=== PATIENT | male | born 1945 | race Caucasian/White ===

== ENCOUNTER 2022-03-09 16:52 | Inpatient (IN) | payer BC ==
[~2022-03-09] VITALS: Ht 165.1 cm; Wt 77.6 kg
--- NOTE | 2022-03-09 17:00 | NUR ---
DIANA from [facility] c/o neck pain s/p unwitnessed GLF. PLACED ON BED, AAOX4, BREATHING EVEN AND UNLABORED SATURATING AT 97%RA.
--- NOTE | 2022-03-09 17:15 | NUR ---
PATIENT IS AAOX3
--- NOTE | 2022-03-09 17:50 | NUR ---
CUSTOMER ASSISTANT AT BEDSIDE
[2022-03-09 18:06] LABS: BASOPHILS % (AUTO) 0.3 % (0.0-2.0); EOSINOPHILS % (AUTO) 1.7 % (0.0-6.0); HEMATOCRIT 40 % (39-51); HEMOGLOBIN 13.4 g/dL (13.5-17.5); LYMPHOCYTES # (AUTO) 1.2 K/uL (0.8-4.8); LYMPHOCYTES % (AUTO) 15.3 % (20.0-44.0); MEAN CORPUSCULAR HGB CONC 34 g/dl (31.0-36.0); MEAN CORPUSCULAR VOLUME 97 fL (80-96); MONOCYTES % (AUTO) 12.8 % (2.0-12.0); NEUTROPHILS # (AUTO) 5.6 K/uL (1.8-8.9); NEUTROPHILS % (AUTO) 69.9 % (43.0-81.0); PLATELET COUNT (AUTO) 216 K/uL (150-450); RED BLOOD CELL COUNT(AUTO) 4.14 MIL/uL (4.5-6.0)
[2022-03-09 18:22] LABS: CALCIUM, SERUM 8.9 mg/dL (8.5-10.1); CARBON DIOXIDE 28 mmol/L (21-32); CHLORIDE 103 mmol/L (98-107); CREATININE 1.7 mg/dL (0.6-1.3); GLUCOSE 139 mg/dL (74-106); POTASSIUM 3.8 mmol/L (3.5-5.1); SODIUM SERUM 137 mmol/L (136-145); UREA NITROGEN, BLOOD 27 mg/dL (7-18)
[2022-03-09 18:27] LABS: ALANINE AMINOTRANSFERASE 6 U/L (12-78); ALBUMIN 3.4 g/dL (3.4-5.0); ALKALINE PHOSPHATASE 101 U/L (46-116); ASPARTATE AMINOTRANSFERASE 18 U/L (15-37); BILIRUBIN,DIRECT 0.2 mg/dL (0.0-0.2); TOTAL PROTEIN, SERUM 6.6 g/dL (6.4-8.2)
--- NOTE | 2022-03-09 18:50 | NUR ---
PATIENT TAKEN TO CT VIA GILLIAN
--- NOTE | 2022-03-09 20:21 | NUR ---
SWAB FOR COVID19 SENT TO LAB
[2022-03-09] MEDS ORDERED: HYDROCODONE/APAP 10/325MG TABLET PO PRN (21:00)
[2022-03-09] MEDS ORDERED: ACETAMINOPHEN 325 MG TABLET PO PRN (21:00)
[2022-03-09] MEDS ORDERED: MAG HYDROX/AL HYDROX/SIMETH 30 ML UDC PO PRN (21:00)
[2022-03-09] MEDS ORDERED: Z GUARD REMEDY 4 OZ OINT TP PRN (21:00)
[2022-03-09] MEDS ORDERED: TEMAZEPAM 15 MG CAPSULE PO PRN (21:00)
[2022-03-09] MEDS ORDERED: ONDANSETRON HCL/PF 4 MG/2 ML VIAL IVP PRN (21:00)
[2022-03-09] MEDS ORDERED: MAGNESIUM HYDROXIDE 30 ML UDC PO PRN (21:00)
[2022-03-09] MEDS ORDERED: HYDROCODONE/APAP 5/325MG TABLET PO PRN (21:00)
--- NOTE | 2022-03-09 23:32 | NUR ---
REPORT GIVEN TO AJ PATTERSON
--- NOTE | 2022-03-09 23:36 | NUR ---
[facility] [phone]
--- NOTE | 2022-03-09 23:39 | NUR ---
PATIENT BEING TRANFERRED TO [facility]
[2022-03-09 23:40] VITALS: BP_SYST 117; BP_SYST 123; BP_DIAS 77; BP_DIAS 78
--- NOTE | 2022-03-10 00:56 | NUR ---
AJ NOTES PT ARRIVED TO UNIT Addendum: 03/10/22 at 0105 by NASIMA BONILLA RN PT ARRIVED TO UNIT VIA GURNEY. PT A/O X 2 PT VERY FORGETFUL AND CONFUSED AT TIMES BUT IS ABLE TO VERBALIZE HIS NEEDS. PT IN NO PAIN OR DISTRESS AT THIS TIME ON ROOM AIR TOLERATING WELL. PT NOTED WITH IV ACCESS ON THE LAC 320G FLUSHING WELL. PT CONNECTED TO NS @75ML/HR TOLERATING WELL.PT PT NOTED WITH GENERALIZED REDNESS PHOTOS TAKEN AND PLACE IN CHART WOUND CONSULT ORDERED. PT ORIENTED TO ROOM AND UNIT CALL LIGHT WITHIN REACH. TABLE WITHIN REACH. BED ON LOW POSITION AND LOCKED IN PLACE. HOB ELEVATED FOR SAFETY BED ALARM ON. ALL NEEDS MET AT THIS TIME. NO PT INFORMATION PROVIDED BY [facility] TRIED CALLING X4 TIMES NO ANSWER. WILL ENDORSE OT DAY SHIFT TO FOLLOW UP IF UNABLE TO OBTAIN INFORMATION.
[2022-03-10] MEDS: IV NS 0.9% 1,000 ML IV PRN (01:27)
[2022-03-10 05:57] LABS: BASOPHILS % (AUTO) 0.5 % (0.0-2.0); EOSINOPHILS % (AUTO) 1.8 % (0.0-6.0); HEMATOCRIT 39 % (39-51); HEMOGLOBIN 13.2 g/dL (13.5-17.5); LYMPHOCYTES # (AUTO) 1.1 K/uL (0.8-4.8); LYMPHOCYTES % (AUTO) 16.1 % (20.0-44.0); MEAN CORPUSCULAR HGB CONC 34 g/dl (31.0-36.0); MEAN CORPUSCULAR VOLUME 96 fL (80-96); MONOCYTES # (AUTO) 0.7 K/uL (0.1-1.30); MONOCYTES % (AUTO) 10.8 % (2.0-12.0); NEUTROPHILS # (AUTO) 4.7 K/uL (1.8-8.9); NEUTROPHILS % (AUTO) 70.8 % (43.0-81.0); PLATELET COUNT (AUTO) 213 K/uL (150-450); RED BLOOD CELL COUNT(AUTO) 4.06 MIL/uL (4.5-6.0); WHITE BLOOD COUNT (AUTO) 6.6 K/uL (4.3-11.0)
[2022-03-10 06:20] LABS: CALCIUM, SERUM 8.5 mg/dL (8.5-10.1); CARBON DIOXIDE 25 mmol/L (21-32); CHLORIDE 103 mmol/L (98-107); CREATININE 1.5 mg/dL (0.6-1.3); GLUCOSE 116 mg/dL (74-106); PHOSPHORUS 3.3 mg/dL (2.5-4.9); POTASSIUM 4.3 mmol/L (3.5-5.1); SODIUM SERUM 136 mmol/L (136-145); UREA NITROGEN, BLOOD 25 mg/dL (7-18)
--- NOTE | 2022-03-10 06:30 | NUR ---
RN CLOSING NOTE PT ASLEEP IN BED NO DISTRESS OR PAIN NOTED. PT RUINING [id number] TOLERATING WELL. PT KEPT CLEAN AND DRY AT ALL TIMES. ALL NEEDS MET. CALL LIGHT WITHIN REACH. TABLE WITHIN REACH. BED IN LOW LOCKED POSITION. HOB ELEVATED FOR SAFETY. WILL ENDORSE CARE TO DAY SHIFT NURSE.
--- NOTE | 2022-03-10 07:52 | NUR ---
RN OPENING NOTE PATIENT AWAKE IN BED RESTING. A/O X2. NO PAIN NOTED AT THIS TIME. ON ROOM AIR, NO DISTRESS OR SHORTNESS OF BREATH NOTED. IV ACCESS LAC #20G, INTACT, PATENT AND FLUSHING WELL. FALL AND SAFETY MEASURES IN PLACE, BED ALARM ON, BED IN LOW AND LOCK POSITION, CALL LIGHT AND TABLE WITHIN EASY REACH, SIDE RAILS UP X2. WILL CONTINUE TO MONITOR.
[2022-03-10 08:00] VITALS: BP 122/72
--- NOTE | 2022-03-10 08:46 | NUR ---
WOUND CARE CONSULT: PT PRESENTS WITH INCONTINENCE, AREAS OF SKIN DISCOLORATION AND RASH TO GROIN FOLDS/INNER THIGHS, PRESENT ON ADMISSION. RECOMMENDATIONS MADE FOR SKIN PROTECTION. DISCUSSED WITH NURSING STAFF. MD IN AGREEMENT WITH PLAN OF CARE.
[2022-03-10] MEDS ORDERED: ASPI-1420 PO (08:49)
[2022-03-10] MEDS ORDERED: DONE10TA44 PO (08:49)
[2022-03-10] MEDS ORDERED: LIDO30AD10 TP (08:49)
[2022-03-10] MEDS ORDERED: MELA5TAB PO (08:49)
[2022-03-10] MEDS ORDERED: ISTR20TA PO (08:49)
[2022-03-10] MEDS ORDERED: MULT-16 PO (08:49)
[2022-03-10] MEDS ORDERED: ASCO-352 PO (08:49)
[2022-03-10] MEDS ORDERED: ATOR40TA PO (08:49)
[2022-03-10] MEDS ORDERED: CHOL100043 PO (08:49)
[2022-03-10] MEDS ORDERED: ACET-868 PO (08:49)
[2022-03-10] MEDS ORDERED: ENTA200T30 PO (08:49)
[2022-03-10] MEDS ORDERED: CARB1TAB31 PO (08:49)
[2022-03-10] MEDS ORDERED: CLOZ25TA4 PO (08:49)
[2022-03-10] MEDS ORDERED: LACT1CAP72 PO (08:49)
[2022-03-10] MEDS ORDERED: DOCU-141 PO (08:49)
[2022-03-10] MEDS: PANTOPRAZOLE 40 MG TABLET.DR PO SCH (09:08)
[2022-03-10] MEDS: CLOTRIMAZOLE 1% 15 GM TUBE TP SCH ×2 (09:32→17:12)
--- NOTE | 2022-03-10 10:45 | NUR ---
10:45 pt refused the US-Kidney exam. RNEsha was informed will try later
[2022-03-10] MEDS ORDERED: DOCUSATE SODIUM 100 MG CAPSULE PO PRN (11:00)
[2022-03-10] MEDS ORDERED: ACETAMINOPHEN 325 MG TABLET PO PRN (11:00)
[2022-03-10] MEDS: CARBIDOPA/LEVODOPA 10/100 MG 1 UDTAB PO SCH ×4 (11:58→20:48)
[2022-03-10] MEDS: ENTACAPONE 200 MG TABLET PO SCH ×4 (12:28→20:48)
--- NOTE | 2022-03-10 14:00 | NUR ---
RN NOTE CONDOM CATHETER WAS PLACE ON PATIENT PER REQUEST OF WOUND CARE NURSE. CHARGE NURSE AWARE, WILL CONTINUE TO MONITOR
[2022-03-10 16:00] VITALS: BP 102/67
--- NOTE | 2022-03-10 17:07 | NUR ---
RN NOTE FAMILY GOT HOME MEDICATION NOURIANZ. MEDICATION NOURIANZ 20MG #19 TABLETS WAS GIVEN TO PHARMACY. CHARGE NURSE AWARE.
[2022-03-10] MEDS: ASCORBIC ACID 500 MG TABLET PO SCH (17:12)
[2022-03-10] MEDS: LACTOBACILLUS RHAMNOSUS GG 1 EACH CAP.SPRINK PO SCH (17:12)
[2022-03-10 17:51] VITALS: BP_SYST 102; BP_SYST 128; BP_SYST 91; BP_DIAS 45; BP_DIAS 65; BP_DIAS 67
--- NOTE | 2022-03-10 19:20 | NUR ---
RN CLOSING NOTE PATIENT AWAKE IN BED RESTING. A/O X2. NO PAIN NOTED AT THIS TIME. ON ROOM AIR, NO DISTRESS OR SHORTNESS OF BREATH NOTED. IV ACCESS LAC #20G, INTACT, PATENT AND FLUSHING WELL. SCHEDULE MEDICATIONS ADMINISTERED. FALL AND SAFETY MEASURES IN PLACE, BED ALARM ON, BED IN LOW AND LOCK POSITION, CALL LIGHT AND TABLE WITHIN EASY REACH, SIDE RAILS UP X2. WILL ENDORSE TO NIGHT .
[2022-03-10 20:08] VITALS: BP 119/54
[2022-03-10] MEDS: CLOZAPINE 25 MG TABLET PO SCH (21:04)
[2022-03-11] MEDS: CARBIDOPA/LEVODOPA 10/100 MG 1 UDTAB PO SCH ×5 (06:05→21:27)
[2022-03-11] MEDS: ENTACAPONE 200 MG TABLET PO SCH ×5 (06:05→21:27)
--- NOTE | 2022-03-11 06:55 | NUR ---
RN CLOSING NOTE PATIENT AWAKE IN BED RESTING. A/O X2. NO PAIN NOTED AT THIS TIME. ON ROOM AIR, NO DISTRESS OR SHORTNESS OF BREATH NOTED. IV ACCESS LAC #20G, INTACT, PATENT AND FLUSHING WELL. FALL AND SAFETY MEASURES IN PLACE, BED ALARM ON, BED IN LOW AND LOCK POSITION, CALL LIGHT AND TABLE WITHIN EASY REACH, SIDE RAILS UP X2.
[2022-03-11 07:37] LABS: CALCIUM, SERUM 8.2 mg/dL (8.5-10.1); CARBON DIOXIDE 25 mmol/L (21-32); CHLORIDE 108 mmol/L (98-107); CREATININE 1.3 mg/dL (0.6-1.3); GLUCOSE 93 mg/dL (74-106); POTASSIUM 3.8 mmol/L (3.5-5.1); SODIUM SERUM 139 mmol/L (136-145); UREA NITROGEN, BLOOD 16 mg/dL (7-18)
[2022-03-11 08:00] VITALS: BP 106/56
[2022-03-11] MEDS: NOURIANZ PO SCH (08:49)
[2022-03-11] MEDS: ATORVASTATIN 40 MG TABLET PO SCH (08:50)
[2022-03-11] MEDS: CLOTRIMAZOLE 1% 15 GM TUBE TP SCH ×2 (08:50→17:45)
[2022-03-11] MEDS: MULTIVITAMINS,THERAGRAN 1 UDTAB TABLET PO SCH (08:50)
[2022-03-11] MEDS: CHOLECALCIFEROL 1,000 UNIT TABLET (VIT D3) PO SCH (08:50)
[2022-03-11] MEDS: LACTOBACILLUS RHAMNOSUS GG 1 EACH CAP.SPRINK PO SCH ×2 (08:50→17:44)
[2022-03-11] MEDS: DONEPEZIL 5 MG TABLET PO SCH (08:50)
[2022-03-11] MEDS: ASCORBIC ACID 500 MG TABLET PO SCH ×2 (08:50→17:44)
[2022-03-11] MEDS: LIDOCAINE 5% (PATCH) 1 EA PATCH TP SCH (08:51)
[2022-03-11] MEDS: PANTOPRAZOLE 40 MG TABLET.DR PO SCH (08:51)
[2022-03-11] MEDS: ASPIRIN EC 81 MG TABLET.DR PO SCH (08:51)
[2022-03-11 16:00] VITALS: BP 96/59
--- NOTE | 2022-03-11 19:06 | NUR ---
RN CLOSING NOTE PATIENT AWAKE IN BED RESTING. A/O X2. NO PAIN NOTED AT THIS TIME. ON ROOM AIR, NO DISTRESS OR SHORTNESS OF BREATH NOTED. IV ACCESS LAC #20G, INTACT, PATENT AND FLUSHING WELL. SCHEDULE MEDICATIONS ADMINISTERED. PATIENT WAS TURNED AND REPOSITIONED PER PROTOCOL. FALL AND SAFETY MEASURES IN PLACE, BED ALARM ON, BED IN LOW AND LOCK POSITION, CALL LIGHT AND TABLE WITHIN EASY REACH, SIDE RAILS UP X2. WILL ENDORSE TO NIGHT
--- NOTE | 2022-03-11 19:30 | NUR ---
MS RN OPENING NOTE PATIENT AWAKE IN BED RESTING. A/O X2. NO PAIN NOTED AT THIS TIME. ON RA, TOLERATING WELL, NO S/S OF ACUTE DISTRESS, IV ACCESS LAC #20G, INTACT, PATENT RUNNING NS@75ML/HR.. FALL AND SAFETY MEASURES IN PLACE, BED ALARM ON, BED IN LOW AND LOCK POSITION, CALL LIGHT AND TABLE WITHIN EASY REACH, SIDE RAILS UP X2. WILL CONTINUE TO MONITOR THROUGHOUT SHIFT.
[2022-03-11 20:32] VITALS: BP 98/64
[2022-03-11] MEDS: CLOZAPINE 25 MG TABLET PO SCH (21:27)
[2022-03-11] MEDS: IV NS 0.9% 1,000 ML IV PRN (23:52)
--- NOTE | 2022-03-12 06:44 | NUR ---
JOURNAL CLERK CLOSING NOTES: PATIENT LYING IN BED . OPENS EYES AND NON-VERBAL. MECHANICAL VENT SETTINGS TOLERATED WELL. NO S/S OF ACUTE DISTRESS NOTED. NO PAIN OR DISCOMFORT NOTED VIA FLACC. ON TELE MONITOR READING SR . IV ACCESS @ L AC#22 AND R AC#22, BOTH PATENT, INTACT AND FLUSHING WELL, S/L. L CHEST PERM CATH..G TUBE, INTACT AND PATENT, RUNNING NEPRO @75ML/HR.ALL DUE MEDS GIVEN. FALL AND SAFETY MEASURES IN PLACE, BED ALARM ON, BED IN LOW AND LOCK POSITION, CALL LIGHT AND TABLE WITHIN EASY REACH, SIDE RAILS UP X2. WILL CONTINUE ENDORSE TO MORNING SHIFT FOR CONTINUIOUS CARE. Addendum: 03/12/22 at 0645 by BRITT WAN RN WRONG PATIENT
--- NOTE | 2022-03-12 06:45 | NUR ---
MS RN CLOSING NOTE PATIENT AWAKE IN BED RESTING. A/O X2. NO PAIN NOTED AT THIS TIME. ON RA, TOLERATING WELL, NO S/S OF ACUTE DISTRESS, IV ACCESS LAC #20G, INTACT, PATENT RUNNING NS@75ML/HR..ALL DUE MEDS GIVEN. FALL AND SAFETY MEASURES IN PLACE, BED ALARM ON, BED IN LOW AND LOCK POSITION, CALL LIGHT AND TABLE WITHIN EASY REACH, SIDE RAILS UP X2. WILL CONTINUE ENDORSE TO MORNING SHIFT
[2022-03-12] MEDS: CARBIDOPA/LEVODOPA 10/100 MG 1 UDTAB PO SCH ×2 (06:50→11:14)
[2022-03-12] MEDS: ENTACAPONE 200 MG TABLET PO SCH ×2 (06:50→11:14)
[2022-03-12] MEDS: PANTOPRAZOLE 40 MG TABLET.DR PO SCH (07:17)
--- NOTE | 2022-03-12 07:18 | NUR ---
MS RN OPENING NOTE RECEIVED PATIENT AWAKE IN BED . A/O X2. NO PAIN NOTED AT THIS TIME. ON ROOM AIR, NO DISTRESS OR SHORTNESS OF BREATH NOTED. IV ACCESS LAC #20G, INTACT, PATENT AND FLUSHING WELL. ON CONTINUOUS NS AT 75 ML/HR. FALL AND SAFETY MEASURES IN PLACE, BED ALARM ON, BED IN LOW AND LOCK POSITION, CALL LIGHT AND TABLE WITHIN EASY REACH, SIDE RAILS UP X2. WILL CONTINUE TO MONITOR.
[2022-03-12 08:00] VITALS: BP 124/74
[2022-03-12] MEDS: ASCORBIC ACID 500 MG TABLET PO SCH (08:26)
[2022-03-12] MEDS: CHOLECALCIFEROL 1,000 UNIT TABLET (VIT D3) PO SCH (08:26)
[2022-03-12] MEDS: MULTIVITAMINS,THERAGRAN 1 UDTAB TABLET PO SCH (08:26)
[2022-03-12] MEDS: LACTOBACILLUS RHAMNOSUS GG 1 EACH CAP.SPRINK PO SCH (08:26)
[2022-03-12] MEDS: ASPIRIN EC 81 MG TABLET.DR PO SCH (08:26)
[2022-03-12] MEDS: DONEPEZIL 5 MG TABLET PO SCH (08:27)
[2022-03-12] MEDS: LIDOCAINE 5% (PATCH) 1 EA PATCH TP SCH (08:27)
[2022-03-12] MEDS: ATORVASTATIN 40 MG TABLET PO SCH (08:27)
[2022-03-12] MEDS: NOURIANZ PO SCH (08:31)
[2022-03-12] MEDS: CLOTRIMAZOLE 1% 15 GM TUBE TP SCH (11:15)
--- NOTE | 2022-03-12 13:35 | NUR ---
RN NOTES DISCHARGE PATIENT IN STABLE CONDITION WITH STABLE VITAL SIGNS. NO PAIN NOTED. NO SOB NOTED. NO DISTRESS NOTED. ALL THE DISCHARGE INSTRUCTION GIVEN TO THE [facility] NURSE KRUNAL. ALL THE BELONGINGS WHICH WERE CELL PHONE, PAINT SPRAY INSPECTOR, 1 PAIR OF BLACK TENNIS SHOES IN A WHITE PAPER BAG, SHIRT, PANTS, AND SOCKS GIVEN TO THE TRANSPORTATION STAFF. ALL THE BELONGINGS ACCOUNTED AND SIGNED WITH 2 NURSE WITNESS. IV SITE REMOVED COVERED WITH DRY DRESSING. NO BLEEDING NOTED. ID BAND REMOVED. PATIENT LEFT HOSPITAL IN STABLE CONDITION WITH STABLE VITAL SIGNS AT 1335 PM. MD AND CHARGE NURSE AWARE OF THE DISCHARGE.
--- NOTE | 2022-03-12 15:07 | NUR ---
[facility] NOT[facility]BER [phone] AT [phone] AND GAVE REPORT TO KRUNAL. THE PATIENT WILL BE ADMITTED TO ROOM 29 B.
--- NOTE | 2022-03-12 15:34 | NUR ---
RN NOTES FIANCE OF THE PATIENT CALLED AT 1530 AND ASKING FOR THE SHOES. I STATED PERSONALLY HANDED THE BLACK TENNIS SHOES IN A WHITE COLOR PAPER BAG IN A BELONGING PLASTIC BAG TO THE TRANSPORTATION STAFF.
[2022-03-12 16:00] VITALS: BP 129/62
== END 2022-03-12 13:35 | DRG 640 ==
LOC: ER 16:54 → MED 23:27
PROVIDERS: ADMIT Nurse Practitioner Acute Care; ATTEND Nurse Practitioner Acute Care
DX: E86.0 Dehydration (principal); N17.0 Acute kidney failure with tubular necrosis; G93.40 Encephalopathy, unspecified; G20 Parkinson's disease; R29.6 Repeated falls; N18.9 Chronic kidney disease, unspecified; W18.30XA Fall on same level, unspecified, initial encounter; F02.80 Dementia in other diseases classified elsewhere, unspecified severity, without behavioral disturbance, psychotic disturbance, mood disturbance, and anxiety; Z20.822 Contact with and (suspected) exposure to COVID-19; M62.421 Contracture of muscle, right upper arm; N28.1 Cyst of kidney, acquired
CPT/HCPCS: 36415; 70450-TC; 71045-TC; 72125-TC; 76770-TC; 80048-TC; 80076-TC; 82962-TC; 83735-TC; 84100-TC; 84443-TC; 84484-TC; 85025-TC; 85730-TC; 86850-TC; 87081-TC; 97110-TC; 97112-TC; 97530-TC; A4349; C9803; G0378; J7030

== ENCOUNTER 2022-05-16 13:44 | Emergency (ER) | payer BC, OTHER ==
[~2022-05-16] VITALS: Ht 170.2 cm; Wt 66.2 kg
[~2022-05-16 13:44] MED LIST: ACET-868 PO; ASCO-352 PO; ASPI-1420 PO; ATOR40TA PO; CARB1TAB31 PO; CHOL100043 PO; CLOZ25TA4 PO; DOCU-141 PO; DONE10TA44 PO; ENTA200T30 PO; ISTR20TA PO; LACT1CAP72 PO; LIDO30AD10 TP; MELA5TAB PO; MULT-16 PO
--- NOTE | 2022-05-16 13:55 | NUR ---
ZULEYMA BILLINGS FROM [facility] FOR INCREASED AGITATION
[2022-05-16 15:19] LABS: BASOPHILS % (AUTO) 0.3 % (0.0-2.0); EOSINOPHILS % (AUTO) 8.7 % (0.0-6.0); HEMATOCRIT 41 % (39-51); HEMOGLOBIN 13.5 g/dL (13.5-17.5); LYMPHOCYTES # (AUTO) 1.2 K/uL (0.8-4.8); LYMPHOCYTES % (AUTO) 13.1 % (20.0-44.0); MEAN CORPUSCULAR HGB CONC 33 g/dl (31.0-36.0); MEAN CORPUSCULAR VOLUME 97 fL (80-96); MONOCYTES # (AUTO) 0.8 K/uL (0.1-1.30); MONOCYTES % (AUTO) 8.5 % (2.0-12.0); NEUTROPHILS # (AUTO) 6.2 K/uL (1.8-8.9); NEUTROPHILS % (AUTO) 69.4 % (43.0-81.0); PLATELET COUNT (AUTO) 217 K/uL (150-450); RED BLOOD CELL COUNT(AUTO) 4.21 MIL/uL (4.5-6.0); WHITE BLOOD COUNT (AUTO) 8.9 K/uL (4.3-11.0)
[2022-05-16 15:54] LABS: ALANINE AMINOTRANSFERASE < 6 U/L (12-78); ALBUMIN 3.5 g/dL (3.4-5.0); ALCOHOL, BLOOD < 3 mg/dL (0-0); ALKALINE PHOSPHATASE 80 U/L (46-116); ASPARTATE AMINOTRANSFERASE 21 U/L (15-37); BILIRUBIN,DIRECT 0.2 mg/dL (0.0-0.2); BILIRUBIN,TOTAL 0.7 mg/dL (0.2-1.0); CALCIUM, SERUM 8.4 mg/dL (8.5-10.1); CARBON DIOXIDE 28 mmol/L (21-32); CHLORIDE 105 mmol/L (98-107); CREATININE 1.2 mg/dL (0.6-1.3); GLUCOSE 95 mg/dL (74-106); SODIUM SERUM 139 mmol/L (136-145); TOTAL PROTEIN, SERUM 6.7 g/dL (6.4-8.2); UREA NITROGEN, BLOOD 19 mg/dL (7-18)
[2022-05-16 15:56] LABS: ACETAMINOPHEN 0 ug/ml (10-30)
--- NOTE | 2022-05-16 16:46 | NUR ---
MOVE SHEET SUBMITTED
[2022-05-16 17:00] VITALS: BP 101/68
[2022-05-16 17:20] LABS: BILIRUBIN,URINE NEGATIVE (NEGATIVE); COLOR,URINE YELLOW (YELLOW); LEUKOCYTE ESTERASE ,URINE NEGATIVE (NEGATIVE); NITRITE, URINE NEGATIVE (NEGATIVE); PROTEIN,URINE NEGATIVE (NEGATIVE); UGLUCOSE NEGATIVE (NEGATIVE)
--- NOTE | 2022-05-16 17:30 | NUR ---
covid swab taken
[2022-05-16 18:21] LABS: RBC,URINE 0-2 /HPF (0-2)
[2022-05-16 18:22] LABS: BACTERIA,URINE None seen /HPF (None Seen); SQUAMOUS EPITHELIAL CELL,UR Rare /HPF (None Seen); WBC,URINE 0-2 /HPF (0-3)
--- NOTE | 2022-05-16 18:22 | NUR ---
[facility] CALLED FOR TRANSPORT, ETA 60 MIN PER BELEN
--- NOTE | 2022-05-16 18:37 | NUR ---
report given to facility AJ dominguez
--- NOTE | 2022-05-16 19:44 | NUR ---
REPORT GIVEN TO [facility] FOR [facility] AT PT'S BEDSIDE
== END 2022-05-16 19:45 ==
LOC: ER 13:55
DX: G20 Parkinson's disease (principal); F02.82 Dementia in other diseases classified elsewhere, unspecified severity, with psychotic disturbance; R53.83 Other fatigue; Z20.822 Contact with and (suspected) exposure to COVID-19; Z79.82 Long term (current) use of aspirin; Z87.440 Personal history of urinary (tract) infections; Z79.899 Other long term (current) drug therapy
CPT/HCPCS: 99284; 70450; 85025; 80048; 80076; 81001; 36415; 87081; 87426; 80143; 80320; 80307; C9803; G0480

== ENCOUNTER 2022-07-02 17:31 | Emergency (ER) | payer MEDICARE, BC, OTHER ==
[~2022-07-02] VITALS: Ht 172.7 cm; Wt 69.9 kg
--- NOTE | 2022-07-02 18:20 | NUR ---
ESTABLISHED IV LINE LEFT AC 20 G ,
--- NOTE | 2022-07-02 18:20 | NUR ---
BLOOD SAMPLE OBTAINED SENT TO LAB
[2022-07-02 18:26] LABS: BASOPHILS # (AUTO) 0.1 K/uL (0.0-0.2); BASOPHILS % (AUTO) 0.8 % (0.0-2.0); EOSINOPHILS % (AUTO) 16.1 % (0.0-6.0); HEMATOCRIT 43 % (39-51); HEMOGLOBIN 14.2 g/dL (13.5-17.5); LYMPHOCYTES # (AUTO) 1.5 K/uL (0.8-4.8); MEAN CORPUSCULAR HGB CONC 33 g/dl (31.0-36.0); MEAN CORPUSCULAR VOLUME 95 fL (80-96); MONOCYTES # (AUTO) 1.5 K/uL (0.1-1.30); MONOCYTES % (AUTO) 11.4 % (2.0-12.0); NEUTROPHILS # (AUTO) 8.1 K/uL (1.8-8.9); NEUTROPHILS % (AUTO) 60.7 % (43.0-81.0); RED BLOOD CELL COUNT(AUTO) 4.53 MIL/uL (4.5-6.0); WHITE BLOOD COUNT (AUTO) 13.3 K/uL (4.3-11.0)
[2022-07-02 18:42] LABS: ALANINE AMINOTRANSFERASE 11 U/L (12-78); ALBUMIN 3.1 g/dL (3.4-5.0); ALKALINE PHOSPHATASE 104 U/L (46-116); ASPARTATE AMINOTRANSFERASE 19 U/L (15-37); BILIRUBIN,DIRECT 0.1 mg/dL (0.0-0.2); BILIRUBIN,TOTAL 0.5 mg/dL (0.2-1.0); CALCIUM, SERUM 8.4 mg/dL (8.5-10.1); CARBON DIOXIDE 25 mmol/L (21-32); CHLORIDE 105 mmol/L (98-107); CREATININE 1.5 mg/dL (0.6-1.3); GLUCOSE 90 mg/dL (74-106); LIPASE 76 U/L (73-393); POTASSIUM 4.2 mmol/L (3.5-5.1); SODIUM SERUM 138 mmol/L (136-145); TOTAL PROTEIN, SERUM 6.6 g/dL (6.4-8.2); UREA NITROGEN, BLOOD 23 mg/dL (7-18)
--- NOTE | 2022-07-02 18:50 | NUR ---
PT UNABLE TO GIVE URINE AT THIS TIME; URINAL PROVIDED AT BEDSIDE.
--- NOTE | 2022-07-02 19:09 | NUR ---
URINE SAMPLE COLLECTED
--- NOTE | 2022-07-02 19:12 | NUR ---
PT TAKEN TO RADIOLOGY FOR CT
[2022-07-02 20:00] LABS: BILIRUBIN,URINE 1+ (NEGATIVE); COLOR,URINE YELLOW (YELLOW); LEUKOCYTE ESTERASE ,URINE 2+ (NEGATIVE); NITRITE, URINE NEGATIVE (NEGATIVE); PH,URINE 8.5 (5.0-8.0); PROTEIN,URINE 2+ mg/dl (NEGATIVE); UGLUCOSE NEGATIVE (NEGATIVE); UROBILINOGEN,URINE 0.2 EU/dL (0.2)
[2022-07-02 20:02] LABS: PLATELET COUNT (AUTO) 222 K/uL (150-450)
[2022-07-02 20:09] LABS: BACTERIA,URINE 3+ /HPF (None Seen); RBC,URINE 81-100 /HPF (0-2); SQUAMOUS EPITHELIAL CELL,UR 0-2 /HPF (None Seen); WBC,URINE 21-50 /HPF (0-3)
[2022-07-02] MEDS ORDERED: CIPR-262 PO (20:40)
--- NOTE | 2022-07-02 20:46 | NUR ---
[facility] CALLED FOR BLS GPONG BACK TO SNF PER ANEL ETA 75 MIN
[2022-07-02] MEDS ORDERED: CIPROFLOXACIN HCL 500 MG TABLET PO ONE (21:00)
[2022-07-02] MEDS ORDERED: CIPROFLOXACIN HCL 500 MG TABLET ONE (21:14)
--- NOTE | 2022-07-02 21:30 | NUR ---
[facility] AT BEDSIDE FOR TRANSPORTATION
[2022-07-02 21:36] VITALS: BP 112/66
--- NOTE | 2022-07-02 22:40 | NUR ---
[facility]
== END 2022-07-02 22:05 | disposition home or self-care (01) ==
LOC: ER 19:05
DX: N30.91 Cystitis, unspecified with hematuria (principal); R10.12 Left upper quadrant pain; G20 Parkinson's disease; Z98.890 Other specified postprocedural states; Z79.899 Other long term (current) drug therapy
CPT/HCPCS: 36415; 80048-TC; 80076-TC; 81001; 83690-TC; 85025-TC; 87086-TC

== ENCOUNTER 2022-09-24 13:34 | Inpatient (IN) | payer MEDICARE, BC, OTHER ==
[~2022-09-24] VITALS: Ht 177.8 cm; Wt 79.4 kg
[~2022-09-24 13:34] MED LIST changes: +CIPR-262 PO
--- NOTE | 2022-09-24 13:58 | NUR ---
IV ESTABLISHED L FA 18G. LABS DRAWN AND SENT.
--- NOTE | 2022-09-24 14:13 | NUR ---
URINE SAMPELE OBTAINED
--- NOTE | 2022-09-24 14:14 | NUR ---
LABS AND URINE SENT TO LAB
[2022-09-24] MEDS ORDERED: IV NS 0.9% 1,000 ML BAG IV ONE (14:30)
--- NOTE | 2022-09-24 14:42 | NUR ---
PATIENT TAKEN TO CT VIA GILLIAN
[2022-09-24 14:49] LABS: BASOPHILS # (AUTO) 0.1 K/uL (0.0-0.2); BASOPHILS % (AUTO) 0.6 % (0.0-2.0); EOSINOPHILS % (AUTO) 0.4 % (0.0-6.0); HEMATOCRIT 40 % (39-51); HEMOGLOBIN 13.3 g/dL (13.5-17.5); LYMPHOCYTES # (AUTO) 1.5 K/uL (0.8-4.8); MEAN CORPUSCULAR HGB CONC 33 g/dl (31.0-36.0); MEAN CORPUSCULAR VOLUME 94 fL (80-96); MONOCYTES # (AUTO) 1.3 K/uL (0.1-1.30); MONOCYTES % (AUTO) 10.2 % (2.0-12.0); NEUTROPHILS # (AUTO) 9.4 K/uL (1.8-8.9); NEUTROPHILS % (AUTO) 76.8 % (43.0-81.0); PLATELET COUNT (AUTO) 211 K/uL (150-450); RED BLOOD CELL COUNT(AUTO) 4.24 MIL/uL (4.5-6.0); WHITE BLOOD COUNT (AUTO) 12.3 K/uL (4.3-11.0)
--- NOTE | 2022-09-24 14:58 | NUR ---
COVID SWAB TAKEN
[2022-09-24 15:05] LABS: SERUM AMMONIA 21 umol/L (11-32)
[2022-09-24 15:11] LABS: CALCIUM, SERUM 8.6 mg/dL (8.5-10.1); CARBON DIOXIDE 26 mmol/L (21-32); CHLORIDE 107 mmol/L (98-107); CREATININE 1.3 mg/dL (0.6-1.3); GLUCOSE 127 mg/dL (74-106); POTASSIUM 4.2 mmol/L (3.5-5.1); SODIUM SERUM 141 mmol/L (136-145); UREA NITROGEN, BLOOD 19 mg/dL (7-18)
--- NOTE | 2022-09-24 15:15 | NUR ---
PHLEBOTOMY AT BEDSIDE
[2022-09-24] MEDS ORDERED: CYAN500T9 PO (15:22)
[2022-09-24] MEDS ORDERED: FINA5TAB11 PO (15:22)
[2022-09-24] MEDS ORDERED: FOLI0.4T6 PO (15:22)
[2022-09-24] MEDS ORDERED: MAGN400O6 PO (15:22)
[2022-09-24] MEDS ORDERED: MULT-594 PO (15:22)
[2022-09-24] MEDS ORDERED: SACC250C PO (15:22)
[2022-09-24] MEDS ORDERED: DIPH25CA51 PO (15:22)
[2022-09-24] MEDS ORDERED: PYRI25TA3 PO (15:22)
[2022-09-24] MEDS ORDERED: ALLO300T2 PO (15:22)
[2022-09-24] MEDS ORDERED: ASPI-1169 PO (15:22)
[2022-09-24] MEDS ORDERED: OMEG1CAP40 PO (15:22)
[2022-09-24] MEDS ORDERED: TAMS-12 PO (15:22)
[2022-09-24] MEDS ORDERED: UBID100C13 PO (15:22)
--- NOTE | 2022-09-24 15:36 | NUR ---
CALLED NURSING SUP REGARDING PT BED
[2022-09-24 15:39] LABS: ALANINE AMINOTRANSFERASE 10 U/L (12-78); ALBUMIN 3.2 g/dL (3.4-5.0); ALCOHOL, BLOOD < 3 mg/dL (0-0); ALKALINE PHOSPHATASE 107 U/L (46-116); ASPARTATE AMINOTRANSFERASE 18 U/L (15-37); BILIRUBIN,DIRECT 0.1 mg/dL (0.0-0.2); BILIRUBIN,TOTAL 0.7 mg/dL (0.2-1.0); TOTAL PROTEIN, SERUM 6.3 g/dL (6.4-8.2)
[2022-09-24 15:43] LABS: BILIRUBIN,URINE NEGATIVE (NEGATIVE); COLOR,URINE YELLOW (YELLOW); LEUKOCYTE ESTERASE ,URINE 2+ (NEGATIVE); NITRITE, URINE NEGATIVE (NEGATIVE); PH,URINE 8.5 (5.0-8.0); PROTEIN,URINE 2+ mg/dl (NEGATIVE); UGLUCOSE NEGATIVE (NEGATIVE); UROBILINOGEN,URINE 0.2 EU/dL (0.2)
[2022-09-24 15:49] LABS: THYROID STIMULATING HORMONE 1.233 uIU/mL (0.358-3.74)
[2022-09-24] MEDS ORDERED: PIPERACILLIN /TAZOBACTAM 3.375 G in IV D5W 50 ML IV ONE (16:00)
[2022-09-24] MEDS ORDERED: PIPERACILLIN /TAZOBACTAM 3.375 G VIAL IV ONE (16:03)
[2022-09-24 16:11] LABS: BACTERIA,URINE 2+ /HPF (None Seen); RBC,URINE 21-50 /HPF (0-2); SQUAMOUS EPITHELIAL CELL,UR 0-2 /HPF (None Seen); TRIPLE PHOSPHATE CRYSTAL,UR Few /HPF (None Seen); WBC,URINE 21-50 /HPF (0-3)
--- NOTE | 2022-09-24 16:24 | NUR ---
[facility] [phone]
--- NOTE | 2022-09-24 16:59 | NUR ---
BED GIVEN 311-2
[2022-09-24] MEDS ORDERED: ONDANSETRON HCL/PF 4 MG/2 ML VIAL IVP PRN (18:00)
[2022-09-24] MEDS ORDERED: ACETAMINOPHEN 650 MG/SUPP.RECT RC PRN (18:00)
--- NOTE | 2022-09-24 18:03 | NUR ---
report given to melo amaya, awaiting transfer to floor.
--- NOTE | 2022-09-24 19:02 | NUR ---
MOVED TO INPATIENT ROOM SAFELY PER ACLS PROTOCOL
[2022-09-24 20:00] VITALS: BP 118/69
--- NOTE | 2022-09-24 20:00 | NUR ---
RN NOTE PT IN BED A/O X1 ORIENTED TO PERSON. PT IN NO PAIN OF DISCOMFORT. NO RESPIRATORY DISTRESS. ON ROOM AIR TOLERATING WELL.NO USE OF ASSERTORY MUSCLES NOTED. PT NOTED WITH IV ACCESS ON THE RFA #18G RUNNING NS @125ML/HR TOLERATING WELL. NOTED PT WITH GENERALIZED REDNESS OF THE SKIN, FACE APPEARS FLUSHED. REDNESS NOTE DON THE SACRUM AND SCROTUM. NOTED SCABS ALL OVER BODY THAT RESEMBLE THOSE OF SCABIES. PT WAS SEEN BY ID ALYSSA IRAHETA.PT PLACED ON ISOLATION. ELIMITE CREAM ORDERED. WILL ADMINISTER WHEN AVAILABLE. PHOTOS TAKEN AND PLACES IN CHART WOUND CONSULT ORDERED. PT PLACED ON TELE MONITOR. ORIENTED TO ROOM AND UNIT. SAFETY PRECAUTIONS MAINTAINED HOB ELEVATED FOR ASPIRATION PRECAUTIONS. BED IN LOW LOCKED POSITION. SIDE RAILS UP X3.
[2022-09-24] MEDS: ENOXAPARIN SODIUM 40 MG/0.4 ML DISP.SYRIN SQ SCH (20:56)
[2022-09-24] MEDS ORDERED: VANCOMYCIN 1.5 GM in IV D5W 500ml IV ONE (21:00)
[2022-09-24] MEDS ORDERED: CEFEPIME 2 GM in IV D5W 100 ML IV SCH (21:00)
[2022-09-24] MEDS ORDERED: PERMETHRIN 5% CRM 60 GM TUBE TP ONE ×2 (21:00→22:25)
[2022-09-24] MEDS ORDERED: VANCOMYCIN 1 GM VIAL ONE (21:08)
[2022-09-24] MEDS ORDERED: VANCOMYCIN 500 MG VIAL ONE (22:23)
[2022-09-24] MEDS ORDERED: MEROPENEM 500 MG VIAL IV ONE (22:24)
[2022-09-24] MEDS: MEROPENEM 500 MG in IV NS 0.9% 50 ML IV SCH (23:12)
[2022-09-25] VITALS (7 sets, daily range): BP systolic 109–125; BP diastolic 70–86
[2022-09-25] MEDS ORDERED: ZOSYN IVPB 4.5 G in IV D5W 50ml IV SCH ×2
[2022-09-25] MEDS: IV NS 0.9% 1,000 ML IV PRN ×3 (03:03→23:21)
[2022-09-25] MEDS: MEROPENEM 500 MG in IV NS 0.9% 50 ML IV SCH ×3 (05:00→21:21)
[2022-09-25 07:03] LABS: BASOPHILS # (AUTO) 0.1 K/uL (0.0-0.2); BASOPHILS % (AUTO) 1.1 % (0.0-2.0); EOSINOPHILS % (AUTO) 1.3 % (0.0-6.0); HEMATOCRIT 38 % (39-51); HEMOGLOBIN 12.9 g/dL (13.5-17.5); LYMPHOCYTES # (AUTO) 1.1 K/uL (0.8-4.8); LYMPHOCYTES % (AUTO) 17.2 % (20.0-44.0); MEAN CORPUSCULAR HGB CONC 34 g/dl (31.0-36.0); MEAN CORPUSCULAR VOLUME 93 fL (80-96); MONOCYTES # (AUTO) 0.7 K/uL (0.1-1.30); MONOCYTES % (AUTO) 10.7 % (2.0-12.0); NEUTROPHILS # (AUTO) 4.5 K/uL (1.8-8.9); NEUTROPHILS % (AUTO) 69.7 % (43.0-81.0); PLATELET COUNT (AUTO) 190 K/uL (150-450); RED BLOOD CELL COUNT(AUTO) 4.09 MIL/uL (4.5-6.0); WHITE BLOOD COUNT (AUTO) 6.4 K/uL (4.3-11.0)
--- NOTE | 2022-09-25 07:07 | NUR ---
RN NOTE PT IN BED A/O X1 ORIENTED TO PERSON. PT IN NO PAIN OF DISCOMFORT. NO RESPIRATORY DISTRESS. ON ROOM AIR TOLERATING WELL.NO USE OF ASSERTORY MUSCLES NOTED. PT NOTED WITH IV ACCESS ON THE RFA #18G RUNNING NS @125ML/HR TOLERATING WELL.PT PLACED ON TELE MONITOR. ORIENTED TO ROOM AND UNIT. SAFETY PRECAUTIONS MAINTAINED HOB ELEVATED FOR ASPIRATION PRECAUTIONS. BED IN LOW LOCKED POSITION. SIDE RAILS UP X3.
[2022-09-25 07:20] LABS: CALCIUM, SERUM 8.1 mg/dL (8.5-10.1); CREATININE 1.2 mg/dL (0.6-1.3); PHOSPHORUS 3.3 mg/dL (2.5-4.9); POTASSIUM 3.8 mmol/L (3.5-5.1)
--- NOTE | 2022-09-25 07:45 | NUR ---
HANDS HANGER OPENING NOTE (DAY SHIFT) PT IN BED A/O X 1 ORIENTED TO PERSON. PT HAS NO SIGNS OF NO PAIN NOR DISCOMFORT. NO RESPIRATORY DISTRESS. ON ROOM AIR TOLERATING WELL.NO USE OF ASSERTORY MUSCLES NOTED. PT NOTED WITH IV ACCESS ON THE RFA #18G INFUSING NS @125ML/HR TOLERATING WELL. PT ON TELE MONITOR SHOWING CONTROLLED A-FIB IN 80s BPM RANGE. SAFETY PRECAUTIONS MAINTAINED HOB ELEVATED FOR ASPIRATION PRECAUTIONS. BED IN LOW LOCKED POSITION. SIDE RAILS UP X3. MAINTAINED ON CONTACT ISOLATION FOR SUSPECTED SCABIES. WILL CONTINUE TO MONITOR AND CARE FOR PT PER MD POC.
--- NOTE | 2022-09-25 09:18 | NUR ---
WOUND CARE CONSULT: PT PRESENTS WITH IMMOBILITY AND INCONTINENCE WELL SKIN CONDITION WITH RASH/RED SPOTS, PRESENT ON ADMISSION. PER NURSING STAFF, PT WAS TREATED WITH ELIMITE. DISCUSSED SKIN PROTECTION WITH NURSING STAFF. IN AGREEMENT WITH PLAN OF CARE. PT WAS PLACED ON ISOFLEX LOW AIRLOSS BED.
[2022-09-25] MEDS: VANCOMYCIN HCL 0.75 GM in IV D5W 250 ML IV SCH ×2 (09:24→21:57)
[2022-09-25] MEDS: PANTOPRAZOLE 40 MG VIAL IV SCH (09:25)
[2022-09-25] MEDS ORDERED: Z GUARD REMEDY 4 OZ OINT TP PRN (09:30)
[2022-09-25] MEDS: LORATADINE 10 MG TABLET PO SCH (10:31)
[2022-09-25] MEDS: Z GUARD REMEDY 4 OZ OINT TP SCH (13:41)
--- NOTE | 2022-09-25 18:50 | NUR ---
CONTRACTS SPECIALIST CLOSING NOTE (DAY SHIFT) PT IN BED A/O X 1 ORIENTED TO PERSON. PT HAS NO SIGNS OF PAIN NOR DISCOMFORT. NO RESPIRATORY DISTRESS. ON ROOM AIR TOLERATING WELL. NO USE OF ASSERTORY MUSCLES NOTED. ls AUSCULTATED CRACKLES IN BASES. PT NOTED WITH IV ACCESS ON THE RFA #18G INFUSING NS @125ML/HR TOLERATING WELL. PT ON TELE MONITOR SHOWING SINUS RHYTHYM IN 70s BPM RANGE. SAFETY PRECAUTIONS MAINTAINED HOB ELEVATED FOR ASPIRATION PRECAUTIONS. PATIENT PASSED SWALLOW EVALUATION WITH SPEECH THERAPIST WITH ORDER FOR MECHANICAL SOFT DIET AND NECTAR THICKENED LIQUIDS AND NO STRAWS, TO CONTINUE ON ASPIRATION PRECAUTIONS. BED IN LOW LOCKED POSITION. SIDE RAILS UP X 3. MAINTAINED ON CONTACT ISOLATION FOR SUSPECTED SCABIES. WILL ENDORSE TO TAX ADJUSTER RNBRITNI, FOR WENDY.
--- NOTE | 2022-09-25 19:40 | NUR ---
RN OPENING NOTE RECEIVED PATIENT IN BED; AWAKE, ALERT AND ORIENTED X 1. ORIENTED TO PERSON. ON ROOM AIR; TOLERATING WELL. BREATHING EVEN AND NONLABORED. NO S/S OF PAIN OR DISCOMFORT NOTED AT THIS TIME. ON TELE MONITORING WHICH READS SINUS RHYTHM HR-76 BPM. WITH IV ACCESS ON LEFT FOREARM 18g; PATENT AND INTACT INFUSING WITH NS 1L REGULATED @ 125 ML/HR; FLUSHES WELL. SAFETY AND ASPIRATION PRECAUTIONS IMPLEMENTED: HOB ELEVATED, CALL LIGHT AND TABLE WITHIN REACH, SIDE RAILS UP X 3, BED IN LOWEST LOCKED POSITION. WILL CONTINUE TO MONITOR THROUGHOUT SHIFT.
[2022-09-25] MEDS: ENOXAPARIN SODIUM 40 MG/0.4 ML DISP.SYRIN SQ SCH (21:40)
[2022-09-26] VITALS: BP 110/69
[2022-09-26 04:00] VITALS: BP 109/72
[2022-09-26] MEDS: MEROPENEM 500 MG in IV NS 0.9% 50 ML IV SCH ×3 (05:50→20:16)
--- NOTE | 2022-09-26 06:45 | NUR ---
RN CLOSING NOTE PATIENT IN BED; AWAKE, A/O X 1. STABLE ON ROOM AIR. IN NO ACUTE DISTRESS. NO S/S OF PAIN OR DISCOMFORT NOTED AT THIS TIME. ON TELE MONITORING WHICH READS A FLUTTER HR-88 BPM. WITH IV ACCESS ON LEFT FOREARM 18g; PATENT AND INTACT INFUSING WITH NS 1L REGULATED @ 125 ML/HR; FLUSHES WELL. SAFETY AND ASPIRATION PRECAUTIONS MAINTAINED: HOB ELEVATED, CALL LIGHT AND TABLE WITHIN REACH, SIDE RAILS UP X 3, BED IN LOWEST LOCKED POSITION. ENDORSED TO MORNING SHIFT FOR CONTINUITY OF CARE.
--- NOTE | 2022-09-26 07:41 | NUR ---
CHANNEL PARTNERS OPENING NOTE (DAY SHIFT) PATIENT IS IN BED A/O X 1 ORIENTED TO PERSON. PT HAS NO SIGNS OF PAIN NOR DISCOMFORT. NO RESPIRATORY DISTRESS. ON ROOM AIR TOLERATING WELL. NO USE OF ASSESSORY MUSCLES NOTED. PT HAS IV ACCESS ON THE LEFT FA #18GAUGE, INFUSING NS @125ML/HR ,TOLERATING WELL. PT ON TELE MONITOR SHOWING CONTROLLED A-FLUTTER IN 90s TO 100s BPM RANGE. DR. CABALLERO, RN HYPERBARIC IS AWARE. SAFETY PRECAUTIONS MAINTAINED HOB ELEVATED FOR ASPIRATION PRECAUTIONS. BED IN LOW LOCKED POSITION. SIDE RAILS UP X 3. MAINTAINED ON CONTACT ISOLATION FOR SUSPECTED SCABIES. WILL CONTINUE TO MONITOR AND CARE FOR PT PER MD POC.
[2022-09-26 08:00] VITALS: BP_SYST 121; BP_DIAS 80; BP_DIAS 81
[2022-09-26] MEDS: PANTOPRAZOLE 40 MG VIAL IV SCH (08:06)
[2022-09-26] MEDS: VANCOMYCIN HCL 0.75 GM in IV D5W 250 ML IV SCH ×2 (08:07→20:56)
[2022-09-26] MEDS: LORATADINE 10 MG TABLET PO SCH (08:08)
[2022-09-26] MEDS: Z GUARD REMEDY 4 OZ OINT TP SCH (08:08)
--- NOTE | 2022-09-26 08:45 | NUR ---
TAXI PROPRIETOR UPDATE NOTE (DAY SHIFT) Patient ate 100% of his mechanical soft diet breakfast and 50mLs of nectar thickened coffee with 1:1 feeding assistance maintaining aspiration precautions, HOB elevated to 90 degree angle sitting upright. No signs of aspiration observed. Patient tolerated eating/drinking well without distress. Spoke with his Brandon adame on the phone. Will continue to monitor and care for patient per MD POC.
[2022-09-26 12:00] VITALS: BP_SYST 124; BP_SYST 96; BP_DIAS 64; BP_DIAS 74
[2022-09-26] MEDS ORDERED: ACETAMINOPHEN 325 MG TABLET PO PRN (12:00)
[2022-09-26] MEDS ORDERED: MAGNESIUM HYDROXIDE 30 ML UDC PO PRN (12:00)
[2022-09-26] MEDS ORDERED: diphenhydrAMINE HCL 25 MG CAPSULE PO PRN (12:00)
[2022-09-26] MEDS: IV NS 0.9% 1,000 ML IV PRN ×2 (13:36→20:56)
[2022-09-26] MEDS: CARBIDOPA/LEVODOPA 10/100 MG 1 UDTAB PO SCH ×3 (14:38→20:57)
[2022-09-26] MEDS: ENTACAPONE 200 MG TABLET PO SCH ×3 (14:39→20:57)
[2022-09-26 14:58] LABS: CALCIUM, SERUM 8.1 mg/dL (8.5-10.1); CARBON DIOXIDE 26 mmol/L (21-32); CHLORIDE 110 mmol/L (98-107); CREATININE 1.4 mg/dL (0.6-1.3); GLUCOSE 90 mg/dL (74-106); POTASSIUM 3.9 mmol/L (3.5-5.1); SODIUM SERUM 143 mmol/L (136-145); UREA NITROGEN, BLOOD 15 mg/dL (7-18)
[2022-09-26 15:04] LABS: ALANINE AMINOTRANSFERASE 15 U/L (12-78); ALBUMIN 2.9 g/dL (3.4-5.0); ALKALINE PHOSPHATASE 87 U/L (46-116); ASPARTATE AMINOTRANSFERASE 16 U/L (15-37); BILIRUBIN,TOTAL 0.6 mg/dL (0.2-1.0); TOTAL PROTEIN, SERUM 5.8 g/dL (6.4-8.2)
[2022-09-26 16:00] VITALS: BP 127/78
[2022-09-26] MEDS ORDERED: Medication Not On Formulary EA (Omega-3 Fatty Acids/Fish Oil (Omega 3 1,000 Mg Softgel) PO SCH (18:00)
[2022-09-26] MEDS ORDERED: UBIDECARENONE 400 MG PO SCH (18:00)
[2022-09-26] MEDS ORDERED: Medication Not On Formulary EA (Saccharomyces Boulardii (Florastor) 250 MG) PO SCH (18:00)
[2022-09-26] MEDS: ASCORBIC ACID 500 MG TABLET PO SCH (18:06)
[2022-09-26] MEDS: CLOZAPINE 25 MG TABLET PO SCH (18:06)
[2022-09-26] MEDS: FOLIC ACID 1 MG TABLET PO SCH (18:07)
[2022-09-26] MEDS: CYANOCOBALAMIN 500 MCG TABLET PO SCH (18:07)
[2022-09-26] MEDS: PYRIDOXINE HCL 50 MG TABLET PO SCH (18:08)
[2022-09-26] MEDS: CHOLECALCIFEROL 1,000 UNIT TABLET (VIT D3) PO SCH (18:08)
--- NOTE | 2022-09-26 18:57 | NUR ---
MACHINE FASTENER CLOSING NOTE (DAY SHIFT) PT IN BED A/O X 1 ORIENTED TO PERSON. PT HAS NO SIGNS OF PAIN NOR DISCOMFORT. NO RESPIRATORY DISTRESS. ON ROOM AIR TOLERATING WELL. NO USE OF ACCESSORY MUSCLES NOTED. LS CONTINUE TO HAVE CRACKLES IN BASES. PT CONTINUES TO HAVE INTACT, PATENT IV ACCESS ON THE RFA #18G INFUSING NS @125ML/HR TOLERATING WELL. PT ON TELE MONITOR SHOWING A-FIB IN THE 80s BPM RANGE. SAFETY PRECAUTIONS MAINTAINED WITH HOB ELEVATED FOR ASPIRATION PRECAUTIONS. PATIENT TOLERATING HIS MECHANICAL SOFT DIET AND NECTAR THICKENED LIQUIDS WELL WITHOUT ANY SIGNS OF ASPIRATION. CONTINUING TO MAINTAIN CONTACT ISOLATION PRECAUTIONS FOR POSSIBLE SCABIES. BED IN LOW LOCKED POSITION. bED ALARM ON. BED BRAKES LOCKED ON. CALL RUBALCAVA/LIGHT WITH BED SIDE TABLE WITHIN EASY REACH OF PATIENT. CARDIAC ECHO COMPLETED AT BED SIDE TODAY, RESULTS PENDING. CARDIOLOGY CONSULT REQUESTED DUE TO NEW ONSET OF ALTERNATING A-FIB AND A-FLUTTER (ASYMPTOMATIC). VITAL SIGNS STABLE WITH ELEVATED TEMP IN AFTERNOON, 99.6F, ORAL TEMP. WILL ENDORSE TO AIR POLLUTION INSPECTOR RN FOR WENDY.
[2022-09-26 20:00] VITALS: BP 110/73
[2022-09-26] MEDS: ENOXAPARIN SODIUM 40 MG/0.4 ML DISP.SYRIN SQ SCH (21:01)
[2022-09-26] MEDS: DONEPEZIL 5 MG TABLET PO SCH (21:54)
[2022-09-26] MEDS: ATORVASTATIN 40 MG TABLET PO SCH (21:54)
[2022-09-26] MEDS: TAMSULOSIN 0.4 MG CAP.SR.24H PO SCH (21:54)
[2022-09-26] MEDS ORDERED: Medication Not On Formulary EA (Melatonin 5 MG) PO SCH (22:00)
--- NOTE | 2022-09-26 22:36 | NUR ---
ENVIRONMENTAL MARKETING REPRESENTATIVE OPENING NOTES RECEIVED PATIENT IN BED, ASLEEP EASILY AWAKE. ON MODERATE HIGH BACK REST POSITION. A/O X 2 WITH EPISODES OF CONFUSION. ATTACHED TO TELE MONITORING DEVICE WITH READING OF A-FLUTTER HR:90BPM. WITH IV ACCESS AT LFA #18G WITH NS1L AT 125ML/HR INFUSING WELL. ON MECHANICALLY SOFT DIET WITH ASPIRATION PRECAUTION. MO PAIN OR DISCOMFORT NOTED AT THIS TIME. NO SOB OR DISTRESS NOTED. KEPT BED ON LOWER LOCKED POSITION, KEPT SIDE RAILS UP X 2 ALL THE TIME,KEPT CALL LIGHT WITHIN AT REACH. WILL CONTINUE TO MONITOR.
[2022-09-27] VITALS: BP 11/70
[2022-09-27 04:00] VITALS: BP 108/78
[2022-09-27] MEDS: MEROPENEM 500 MG in IV NS 0.9% 50 ML IV SCH ×3 (04:49→21:08)
[2022-09-27] MEDS: IV NS 0.9% 1,000 ML IV PRN ×2 (05:57→18:05)
[2022-09-27 06:16] LABS: BASOPHILS % (AUTO) 0.5 % (0.0-2.0); EOSINOPHILS % (AUTO) 0.9 % (0.0-6.0); HEMATOCRIT 37 % (39-51); HEMOGLOBIN 12.1 g/dL (13.5-17.5); LYMPHOCYTES # (AUTO) 0.8 K/uL (0.8-4.8); LYMPHOCYTES % (AUTO) 11.2 % (20.0-44.0); MEAN CORPUSCULAR HGB CONC 33 g/dl (31.0-36.0); MEAN CORPUSCULAR VOLUME 95 fL (80-96); MONOCYTES # (AUTO) 0.9 K/uL (0.1-1.30); MONOCYTES % (AUTO) 12.2 % (2.0-12.0); NEUTROPHILS # (AUTO) 5.3 K/uL (1.8-8.9); NEUTROPHILS % (AUTO) 75.2 % (43.0-81.0); PLATELET COUNT (AUTO) 153 K/uL (150-450); RED BLOOD CELL COUNT(AUTO) 3.85 MIL/uL (4.5-6.0)
--- NOTE | 2022-09-27 06:30 | NUR ---
RN NOTES UPON ROUNDS NOTED REDNESS AND SWELLING ON IV SITE. REMOVED AND ICED PACK PLACED. INSERTED NEW IV ACCESS AT LEFT HAND #20G WITH NS1L X 125ML/HR INFUSING WELL. WILL CONTINUE TO MONITOR
[2022-09-27 06:49] LABS: CALCIUM, SERUM 8.2 mg/dL (8.5-10.1); CREATININE 1.2 mg/dL (0.6-1.3); MAGNESIUM 1.8 mg/dL (1.8-2.4); PHOSPHORUS 2.4 mg/dL (2.5-4.9); POTASSIUM 3.9 mmol/L (3.5-5.1)
--- NOTE | 2022-09-27 06:56 | NUR ---
DISTRICT AGENT CLOSING NOTES PATIENT IS ON BED, ASLEEP ON MODERATE HIGH BACK REST POSITION. NO PAIN OR SOB NOTED AT THIS TIME, ON MECHANICALLY SOFT DIET WITH ASPIRATION PRECAUTIONS. WITH IV ACCESS AT L HAND #20G WITH NS AT 125ML/HR INFUSING WELL. WITH IV ANTIBIOTIC GIVEN. ON CONTACT PRECAUTIONS RELATED TO SCABIES. PALL DUE MEDICATIONS GIVEN, ALL NEEDS ATTENDED. KEPT BED ON LOWER LOCKED POSITION, KEPT SIDE RAILS UP X 2 ALL THE TIME, KEPT CALL LIGHT WITHIN AT REACH. KEPT PATIENT WARM AND COMFORTABLE, WILL ENDORSED TO NEXT SHIFT FOR WENDY.
[2022-09-27 07:00] VITALS: BP 114/81
[2022-09-27] MEDS: ENTACAPONE 200 MG TABLET PO SCH ×5 (07:17→21:09)
[2022-09-27] MEDS: CARBIDOPA/LEVODOPA 10/100 MG 1 UDTAB PO SCH ×5 (07:17→21:09)
--- NOTE | 2022-09-27 07:18 | NUR ---
CORNER BEAD OPERATOR OPENING NOTE (DAY SHIFT) PATIENT RECEIVED IN BED ASLEEP, EASILY AROUSED, A/O X 1 ORIENTED TO PERSON. PT HAS NO SIGNS OF PAIN NOR DISCOMFORT. NO RESPIRATORY DISTRESS. ON ROOM AIR TOLERATING WELL. NO USE OF ACCESSORY MUSCLES NOTED. PT HAS IV ACCESS ON THE LEFT HAND #20 GAUGE, INFUSING NS @125ML/HR ,TOLERATING WELL. PT ON TELE MONITOR SHOWING CONTROLLED A-FIB IN THE 80s BPM RANGE. SAFETY PRECAUTIONS MAINTAINED HOB ELEVATED FOR ASPIRATION PRECAUTIONS. BED IN LOW LOCKED POSITION. SIDE RAILS UP X 3. MAINTAINED ON CONTACT ISOLATION FOR SUSPECTED SCABIES. WILL CONTINUE TO MONITOR AND CARE FOR PT PER MD POC.
[2022-09-27] MEDS ORDERED: NEUTRA PHOS 1 POWD.PACKET NG ONE (09:30)
[2022-09-27] MEDS: MULTIVITAMINS,THERAGRAN 1 UDTAB TABLET PO SCH (10:31)
[2022-09-27] MEDS: FINASTERIDE (5 MG) 5 MG TABLET PO SCH (10:31)
[2022-09-27] MEDS: PANTOPRAZOLE 40 MG/PACK PACK PO SCH (10:31)
[2022-09-27] MEDS: LORATADINE 10 MG TABLET PO SCH (10:31)
[2022-09-27] MEDS: DOCUSATE SODIUM 100 MG CAPSULE PO SCH (10:31)
[2022-09-27] MEDS: ASPIRIN 81 MG TAB.CHEW PO SCH (10:32)
[2022-09-27] MEDS: ALLOPURINOL 100 MG TABLET PO SCH (10:37)
[2022-09-27] MEDS: VANCOMYCIN 500 MG in IV D5W 100ml IV SCH ×2 (10:43→21:52)
[2022-09-27] MEDS: ASCORBIC ACID 500 MG TABLET PO SCH ×2 (10:44→17:47)
[2022-09-27] MEDS: Z GUARD REMEDY 4 OZ OINT TP SCH (10:46)
[2022-09-27] MEDS ORDERED: ALBUTEROL HALF STRENGTH 1.25 MG/3 ML VIAL.NEB NEB PRN (11:30)
[2022-09-27 12:00] VITALS: BP 98/62
[2022-09-27] MEDS: ENSURE ENLIVE 237 ML LIQUID (VANILLA) PO SCH ×2 (13:41→18:00)
[2022-09-27 16:15] VITALS: BP 130/76
[2022-09-27] MEDS: CLOZAPINE 25 MG TABLET PO SCH (17:47)
[2022-09-27] MEDS: CYANOCOBALAMIN 500 MCG TABLET PO SCH (17:48)
[2022-09-27] MEDS: FOLIC ACID 1 MG TABLET PO SCH (17:48)
[2022-09-27] MEDS: CHOLECALCIFEROL 1,000 UNIT TABLET (VIT D3) PO SCH (17:51)
[2022-09-27] MEDS: PYRIDOXINE HCL 50 MG TABLET PO SCH (17:51)
--- NOTE | 2022-09-27 19:00 | NUR ---
CELL OPERATOR CLOSING NOTE (DAY SHIFT) PT IN BED A/O X 1 ORIENTED TO PERSON. PT HAS NO SIGNS OF PAIN NOR DISCOMFORT. NO RESPIRATORY DISTRESS. ON ROOM AIR TOLERATING WELL. NO USE OF ACCESSORY MUSCLES NOTED. LS CONTINUE TO HAVE CRACKLES IN BASES. PT CONTINUES TO HAVE INTACT, PATENT IV ACCESS ON THE LEFT HAND #20G PIV CATHETER INFUSING NS @ 125ML/HR TOLERATING WELL. PT ON TELE MONITOR SHOWING A-FIB IN THE 80s BPM RANGE. SAFETY PRECAUTIONS MAINTAINED WITH HOB ELEVATED FOR ASPIRATION PRECAUTIONS. PATIENT TOLERATING HIS MECHANICAL SOFT DIET AND NECTAR THICKENED LIQUIDS WELL WITHOUT ANY SIGNS OF ASPIRATION. CONTINUING TO MAINTAIN CONTACT ISOLATION PRECAUTIONS FOR POSSIBLE SCABIES. BED IN LOW LOCKED POSITION. BED ALARM ON. BED BRAKES LOCKED ON. CALL RUBALCAVA/LIGHT WITH BED SIDE TABLE WITHIN EASY REACH OF PATIENT. sTRAIGHT CATHETERIZED URINE SPECIMEN FOR REPEAT URINALYSIS AND URINE CULTURE COLLECTED AND SENT TO LAB AT 16;20 HOURS. VITAL SIGNS STABLE WITH ELEVATED TEMP IN AFTERNOON, 100.7 F, ORAL TEMP. BLOOD CULTURES ORDERED X 2 , COLLECTED B7Y LAB, RESULTS PENDING. SPUTUM CULTURE ORDERED AND STILL NEEDS TO BE COLLECTED. WILL ENDORSE TO DISHING MACHINE OPERATOR RN FOR WENDY.
--- NOTE | 2022-09-27 19:51 | NUR ---
RN Opening Notes Received pt in bed, asleep, awakens to verbal stimuli. AOX1. On RA and tolerating well. No SOB noted. No s/sx of respiratory distress noted. Tele monitor detects atrial fibrillation with rate of 75. IV access in L Hand #20G running NS @ 125 mL/hr. Safety precautions in place: bed in lowest, locked position, siderails upx2, and brakes on. Table and call light within reach. All needs met at this time.
[2022-09-27 20:00] VITALS: BP 115/77
[2022-09-27] MEDS: DONEPEZIL 5 MG TABLET PO SCH (21:08)
[2022-09-27] MEDS: TAMSULOSIN 0.4 MG CAP.SR.24H PO SCH (21:09)
[2022-09-27] MEDS: ATORVASTATIN 40 MG TABLET PO SCH (21:09)
[2022-09-27] MEDS: ENOXAPARIN SODIUM 40 MG/0.4 ML DISP.SYRIN SQ SCH (21:10)
[2022-09-28] VITALS: BP 117/69
--- NOTE | 2022-09-28 00:15 | NUR ---
ATTEMPTED TO COLLECT SPUTUM SAMPLE FROM PT. DID NOT TOLERATE NTS. PT EXPECTORATED BLOOD. VERBALLY TOLD MYSELF, RIC JASMINE AND TO "GO F*CK YOURSELVES." RN AND HEDGE FUND TRADER NOTIFIED THAT PT IS NOT COOPERATIVE AND COMBATIVE.
[2022-09-28] MEDS: IV NS 0.9% 1,000 ML IV PRN (03:16)
[2022-09-28 05:00] VITALS: BP 121/76
[2022-09-28] MEDS: MEROPENEM 500 MG in IV NS 0.9% 50 ML IV SCH ×2 (05:20→13:31)
--- NOTE | 2022-09-28 06:33 | NUR ---
RN Closing Notes Pt in bed, asleep, awakens to verbal stimuli. AOX1. On RA and tolerating well. No SOB noted. No s/sx of respiratory distress noted. Tele monitor detects atrial fibrillation with rate of 75. IV access in L Hand #20G running NS @ 125 mL/hr. All orders carried out. All needs met. Pt kept clean and dry. Safety precautions in place: bed in lowest, locked position, siderails upx2, and brakes on. Table and call light within reach. Will endorse to oncoming shift for WENDY.
[2022-09-28 06:59] LABS: BASOPHILS # (AUTO) 0.1 K/uL (0.0-0.2); HEMATOCRIT 37 % (39-51); HEMOGLOBIN 12.3 g/dL (13.5-17.5); LYMPHOCYTES # (AUTO) 0.9 K/uL (0.8-4.8); LYMPHOCYTES % (AUTO) 14.8 % (20.0-44.0); MEAN CORPUSCULAR HGB CONC 34 g/dl (31.0-36.0); MEAN CORPUSCULAR VOLUME 95 fL (80-96); MONOCYTES % (AUTO) 16.4 % (2.0-12.0); NEUTROPHILS # (AUTO) 3.9 K/uL (1.8-8.9); NEUTROPHILS % (AUTO) 65.8 % (43.0-81.0); PLATELET COUNT (AUTO) 140 K/uL (150-450); RED BLOOD CELL COUNT(AUTO) 3.87 MIL/uL (4.5-6.0); WHITE BLOOD COUNT (AUTO) 5.9 K/uL (4.3-11.0)
[2022-09-28 07:00] VITALS: BP 137/88
--- NOTE | 2022-09-28 07:00 | NUR ---
ANVIL SEATING PRESS OPERATOR OPENING NOTES: RECEIVED PT IN BED AWAKE, ALERT AND ORIENTED X1-2, NO SOB OR CARDIAC DISTRESS NOTED, ON TELE MONITOR WITH CURRENT READING A FIB @75BPM. NOTED WITH CONDOM CATH PATENT AND INTACT DRAINING CLEAR YELLOW COLORED URINE VIA GRAVITY. IV ACCESS ON LEFT HAND GAUGE 20 PATENT, INTACT AND INFUSING NS 1L @ 125ML/HR. SAFETY MEASURES MAINTAINED: BED LOCKED AND IN LOWEST POSITION, SIDE RAILS UP X 2 . CALL LIGHT IN EASY REACH FOR HELP. WILL MONITOR PT ACCORDINGLY.
[2022-09-28 07:20] LABS: ALBUMIN 2.4 g/dL (3.4-5.0); CALCIUM, SERUM 7.2 mg/dL (8.5-10.1); CREATININE 0.9 mg/dL (0.6-1.3); MAGNESIUM 1.7 mg/dL (1.8-2.4); PHOSPHORUS 2.3 mg/dL (2.5-4.9); POTASSIUM 3.1 mmol/L (3.5-5.1); TOTAL PROTEIN, SERUM 5.2 g/dL (6.4-8.2)
[2022-09-28] MEDS: CARBIDOPA/LEVODOPA 10/100 MG 1 UDTAB PO SCH ×3 (07:45→15:13)
[2022-09-28] MEDS: ENTACAPONE 200 MG TABLET PO SCH ×3 (07:45→15:13)
[2022-09-28] MEDS: ENSURE ENLIVE 237 ML LIQUID (VANILLA) PO SCH ×2 (08:03→13:32)
[2022-09-28] MEDS ORDERED: MEGESTROL ACETATE SUSP 400 MG/10 ML UDC PO SCH (09:00)
[2022-09-28] MEDS: Z GUARD REMEDY 4 OZ OINT TP SCH (09:00)
[2022-09-28] MEDS ORDERED: POTASSIUM CHLORIDE 20 MEQ TAB.PRT.SR PO ONE (09:00)
[2022-09-28] MEDS: PANTOPRAZOLE 40 MG/PACK PACK PO SCH (09:17)
[2022-09-28] MEDS: ASPIRIN 81 MG TAB.CHEW PO SCH (09:17)
[2022-09-28] MEDS: ASCORBIC ACID 500 MG TABLET PO SCH (09:17)
[2022-09-28] MEDS: MULTIVITAMINS,THERAGRAN 1 UDTAB TABLET PO SCH (09:18)
[2022-09-28] MEDS: ALLOPURINOL 100 MG TABLET PO SCH (09:18)
[2022-09-28] MEDS: DOCUSATE SODIUM 100 MG CAPSULE PO SCH (09:18)
[2022-09-28] MEDS: LORATADINE 10 MG TABLET PO SCH (09:18)
[2022-09-28] MEDS: FINASTERIDE (5 MG) 5 MG TABLET PO SCH (09:18)
[2022-09-28] MEDS: VANCOMYCIN 500 MG in IV D5W 100ml IV SCH (09:19)
[2022-09-28] MEDS ORDERED: MAGNESIUM OXIDE 400 MG TABLET PO ONE (11:00)
[2022-09-28] MEDS ORDERED: ERTA1VIA4 IJ (11:30)
[2022-09-28] MEDS ORDERED: VANC500F2 IV (11:30)
[2022-09-28 11:59] VITALS: BP 101/59
[2022-09-28 15:49] VITALS: BP 144/69
--- NOTE | 2022-09-28 16:24 | NUR ---
POURER CRANE LADLE NOTES: PT DC TO [facility], PT ALERT AND ORIENTED X 2 AND ABLE TO MAKE NEEDS KNOWN. NO SOB OR CARDIAC DISTRESS NOTED, TELE MONITOR HANDED TO US JUDY. REPORT GIVEN TO AJ VELEZ. DISCHARGE PACKET GIVEN TO EMT. CELLPHONE AND CELPHONE GRAY TENDER GIVEN TO PT/EMT. IV ACCESS ON LEFT HAND IN PLACE PT WILL CONTINUE IV ATB IN THE SNF. PT LEFT THE UNIT STABLE, ACCOMPANIED BY2 REPAIR DEPARTMENT MANAGER VIA [facility].
== END 2022-09-28 16:26 | DRG 871 ==
LOC: ER 14:05 → TELE 17:45
PROVIDERS: ADMIT Nurse Practitioner Acute Care; ATTEND Nurse Practitioner Acute Care
DX: A41.9 Sepsis, unspecified organism (principal); G93.41 Metabolic encephalopathy; J15.9 Unspecified bacterial pneumonia; J69.0 Pneumonitis due to inhalation of food and vomit; D68.59 Other primary thrombophilia; N39.0 Urinary tract infection, site not specified; I48.92 Unspecified atrial flutter; E44.0 Moderate protein-calorie malnutrition; F02.80 Dementia in other diseases classified elsewhere, unspecified severity, without behavioral disturbance, psychotic disturbance, mood disturbance, and anxiety; G20 Parkinson's disease; Z88.1 Allergy status to other antibiotic agents; Z20.822 Contact with and (suspected) exposure to COVID-19; Z98.890 Other specified postprocedural states; Z79.82 Long term (current) use of aspirin; Z79.899 Other long term (current) drug therapy; B96.89 Other specified bacterial agents as the cause of diseases classified elsewhere; U09.9 Post COVID-19 condition, unspecified; R62.7 Adult failure to thrive; Z74.09 Other reduced mobility; E88.09 Other disorders of plasma-protein metabolism, not elsewhere classified; M62.421 Contracture of muscle, right upper arm; B86 Scabies; T78.40XA Allergy, unspecified, initial encounter; X58.XXXA Exposure to other specified factors, initial encounter; R79.89 Other specified abnormal findings of blood chemistry; I48.91 Unspecified atrial fibrillation; E11.9 Type 2 diabetes mellitus without complications; E87.6 Hypokalemia; K57.30 Diverticulosis of large intestine without perforation or abscess without bleeding
CPT/HCPCS: 36415; 70450-TC; 71045-TC; 80048-TC; 80053-TC; 80061-TC; 80076-TC; 80202-TC; 81001; 82140-TC; 83605-TC; 83735-TC; 84100-TC; 84443-TC; 84484-TC; 85025-TC; 85730-TC; 87040-TC; 87081-TC; 87086-TC; 92526; 92611-TC; 93307-TC; A4223; A4349; C9113; C9803; G0378; G0480; J0692; J1650; J2185; J2543; J3370; J7030; J7060